=== PATIENT | female | born 1965 | race Caucasian/White ===

== ENCOUNTER → 2017-02-04 | Outpatient (CLI) | payer BC ==
--- NOTE | 2017-02-04 12:08 | DI ---
MRI BRAIN SCAN WITHOUT CONTRAST, 02/04/2017 10:50 AM: Clinical History: Loss of balance. Previous Exam: None at this facility. Sequences: Sagittal T1; Axial GWENDOLYN T2 and FLAIR. Axial diffusion weighted images with ADC mapping were also performed. The 4th, 3rd, and lateral ventricles are of normal size, shape, position, and contour for this patien t's age. There are no focal areas of abnormally increased or decreased signal intensity. There is no cerebellopontine angle mass. There is only mild cerebral atrophy. Diffusion weighted imaging with ADC mapping is normal. There are no extracerebral mantels or shift of the midline structures. The parana miriam sinuses are normal. Readin. Normal noncontrast MRI brain scan. There is no cerebellopontine angle mass. 2. Diffusion weighted imaging with ADC mapping is normal.
== END ==
LOC: MRI 10:47
PROVIDERS: ATTEND Physician Assistant Medical
DX: R26.89 Other abnormalities of gait and mobility (principal)
CPT/HCPCS: 70551